=== PATIENT | male | born 1995 | race Caucasian/White ===

== ENCOUNTER 2016-12-14 21:21 | Emergency (ER) | payer OTHER ==
[~2016-12-14] VITALS: Ht 167.6 cm; Wt 64.4 kg
--- NOTE | 2016-12-14 21:55 | NUR ---
TO BED 8 A 21 YO MALE BIB SELF AND C/O "CHEST TIGHTNESS TODAY; BEEN HAVING STRESS AND SLEEPLESS NIGHTS; TOOK ADDERALL, ATIVAN AND HAD ALCOHOL TODAY." PATIENT IS AAOX4, AMBULATORY WITH STEADY GAIT. BREATHING EVEN AND UNLABORED. O2 SATURATION ON ROOM IS 99%. VSS. PER PATIENT HE TOOK ATIVAN BEFORE COMING TO ER. INITIATED COMFORT MEASURES. GOWNED. AWAITING FOR ER MD STOK[facility].
[2016-12-14 22:22] LABS: BASOPHILS # (AUTO) 0.1 /CMM (0.0-0.2); BASOPHILS % (AUTO) 0.8 % (0.0-2.0); EOSINOPHILS # (AUTO) 0.1 /CMM (0.0-0.7); EOSINOPHILS % (AUTO) 0.7 % (0.0-6.0); HEMATOCRIT 38 % (39-51); HEMOGLOBIN 11.9 g/dL (13.5-17.5); LYMPHOCYTES % (AUTO) 14.4 % (20.0-44.0); MEAN CORPUSCULAR HEMOGLOBIN 20 PG (26.0-33.0); MEAN CORPUSCULAR HGB CONC 32 g/dl (31.0-36.0); MEAN CORPUSCULAR VOLUME 63 fL (80-96); MONOCYTES # (AUTO) 0.6 /CMM (0.1-1.30); MONOCYTES % (AUTO) 8.9 % (2.0-12.0); NEUTROPHILS # (AUTO) 5.4 /CMM (1.8-8.9); NEUTROPHILS % (AUTO) 75.2 % (43.0-81.0); PLATELET COUNT (AUTO) 202 /CMM (150-450); RDW COEFFICIENT OF VARIATION 16.6 (11.5-15.0); RED BLOOD CELL COUNT(AUTO) 6.02 MIL/uL (4.5-6.0); WHITE BLOOD COUNT (AUTO) 7.1 K/uL (4.3-11.0)
[2016-12-14] MEDS ORDERED: ASPIRIN 81 MG TAB.CHEW PO ONE (22:30)
[2016-12-14 22:43] LABS: CALCIUM, SERUM 8.7 mg/dL (8.5-10.1); CARBON DIOXIDE 29 mmol/L (21-32); CHLORIDE 105 mmol/L (98-107); CREATININE 0.8 mg/dL (0.6-1.3); EOSINOPHILS % (MANUAL) 1 % (0-4); GLUCOSE 86 mg/dL (74-106); LYMPHOCYTES % (MANUAL) 17 % (16-48); MONOCYTES % (MANUAL) 8 % (0-11.0); NEUTROPHILS % (MANUAL) 74 (42-76); POTASSIUM 3.9 mmol/L (3.5-5.1); SODIUM SERUM 143 mmol/L (136-145); UREA NITROGEN, BLOOD 13 mg/dL (7-18)
[2016-12-14] MEDS ORDERED: ASPIRIN 81 MG TAB.CHEW ONE (22:47)
[2016-12-14 22:51] LABS: TROPONIN I < 0.017 ng/mL (0.00-0.056)
--- NOTE | 2016-12-15 00:20 | NUR ---
Patient discharged to home in stable condition. Written and verbal after care instructions given. Patient verbalizes understanding of instruction. Ambulatory with a steady gait
[2016-12-15 00:21] VITALS: BP 122/69
== END 2016-12-15 00:22 | disposition home or self-care (01) ==
LOC: ER 21:29
DX: F41.9 Anxiety disorder, unspecified (principal); F15.10 Other stimulant abuse, uncomplicated; J45.909 Unspecified asthma, uncomplicated; F17.200 Nicotine dependence, unspecified, uncomplicated; Z79.82 Long term (current) use of aspirin
CPT/HCPCS: 36415; 71010; 80048; 84484; 85025; 93005; 99285; A4606; Z7610

== ENCOUNTER 2017-01-31 03:57 | Emergency (ER) | payer MEDICAID, OTHER ==
[~2017-01-31] VITALS: Ht 172.7 cm; Wt 67.1 kg
[2017-01-31 04:03] VITALS: BP 134/90
--- NOTE | 2017-01-31 04:05 | NUR ---
TO BED 1 A 21 YO MALE BBSELF C/O SORE THROAT X2 DAYS, BODY FATIGUE AND HEADACHE. AAOX4, AMBULATORY WITH STEADY GAIT, AFEBRILE, VSS. NAD NOTED. COMFORT MEASURES RENDERED. AWAITING FOR ER MD [facility].
--- NOTE | 2017-01-31 04:08 | NUR ---
DR KENNEY AT BEDSIDE FOR EVAL.
[2017-01-31] MEDS ORDERED: IBUPROFEN 400 MG TABLET ONE (05:09)
[2017-01-31] MEDS ORDERED: IBUPROFEN 400 MG TABLET PO ONE (05:30)
== END 2017-01-31 05:20 | disposition home or self-care (01) ==
LOC: ER 04:03
DX: J02.0 Streptococcal pharyngitis (principal); F17.200 Nicotine dependence, unspecified, uncomplicated; F41.9 Anxiety disorder, unspecified; Z88.1 Allergy status to other antibiotic agents
CPT/HCPCS: 86403-TC; A4606; Z7610

== ENCOUNTER 2017-03-11 00:41 | Emergency (ER) | payer MEDICAID ==
[~2017-03-11] VITALS: Ht 172.7 cm; Wt 67.1 kg
--- NOTE | 2017-03-11 01:15 | NUR ---
PT BIB SELF, C/O THROAT EYE PAIN AND BURNING WITH URINATION, PT STATES HIS PARTNER WAS JUST TESTED FOR CHLAMYDIA. PATIENT IS AAOX4, AMBULATORY WITH STEADY GAIT, AFEBRILE. VSS. NAD NOTED. GOWNED. COMFORT MEASURES RENDERED. AWAITING FOR ER MD [facility].
[2017-03-11] MEDS ORDERED: TETRACAINE HCL/PF 0.5% UD 2 ML BOTTLE ONE (01:46)
[2017-03-11] MEDS ORDERED: FLUORESCEIN SODIUM OPHTH 1 EA STRIP ONE (01:46)
[2017-03-11] MEDS ORDERED: TETRACAINE HCL/PF 0.5% UD 2 ML BOTTLE OP ONE (02:00)
[2017-03-11] MEDS ORDERED: FLUORESCEIN SODIUM OPHTH 1 EA STRIP OP ONE (02:00)
[2017-03-11] MEDS ORDERED: AZITHROMYCIN 250 MG TABLET ONE (02:20)
[2017-03-11] MEDS ORDERED: CEFTRIAXONE 1 G VIAL ONE (02:20)
[2017-03-11] MEDS ORDERED: LIDOCAINE /MPF 1% VIAL 5 ML VIAL ONE (02:20)
[2017-03-11] MEDS ORDERED: CEFTRIAXONE 1 G VIAL IM ONE (02:30)
[2017-03-11] MEDS ORDERED: AZITHROMYCIN 250 MG TABLET PO ONE (02:30)
--- NOTE | 2017-03-11 03:12 | NUR ---
Patient discharged to home in stable condition. Written and verbal after care instructions given. Patient verbalizes understanding of instruction. Patient is ambulatory with steady gait, no further complaints.
[2017-03-11 03:13] VITALS: BP 124/69
== END 2017-03-11 03:39 | disposition home or self-care (01) ==
LOC: ER 00:47
DX: H10.9 Unspecified conjunctivitis (principal); N34.2 Other urethritis; J02.9 Acute pharyngitis, unspecified; F41.9 Anxiety disorder, unspecified; F17.200 Nicotine dependence, unspecified, uncomplicated; Z88.1 Allergy status to other antibiotic agents
CPT/HCPCS: 96372; 99283; A4606; J0696; J3490; Z7610